=== PATIENT | female | born 1960 | race Caucasian/White ===

== ENCOUNTER → 2018-06-03 | Day surgery (SDC) | payer OTHER ==
--- NOTE | 2018-06-06 16:51 | PATH ---
Surgical Pathology Report Patient Name: GINO CLARK [facility]. Rec. #: [id number] /Age/Gender: 1960 (Age: 58) / F Account: [id number] Location: [facility] Taken: 06/03/2018 Received: 06/03/2018 Reported: 06/06/2018 Physicians: Jose Ayon M.D. Specimen(s) Received LEFT BREAST 9:00 RETRO CORE BIOPSY Clinical History Nonpalpable lesion Ultrasound findings: Highly suspicious/malignant Final Diagnosis Breast, left, 9:00 retro, core biopsy: Invasive mammary carcinoma with lobular features (see note). Carcinoma Measures at least 8 mm in greatest dimension in this material. Note: E-cadherin and p120 catenin immunostains are being performed to determine ductal versus lobular phenotype; results will be reported separately in an addendum. Results of ER) and KY studies performed at are as follows: ER (clone [id number] mouse monoclonal antibody by Leica): > 95 % nuclear staining with strong intensity (Positive). KY (clone16 mouse monoclonal antibody by Leica): 0 % nuclear staining (Negative). Results of Her-2 and Ki67 studies will be reported separately in an addendum. Positive and negative controls (internal if applicable) show appropriate results. Formalin fixation and cold ischemic times are within current ASCO/CAP recommendations for ER, KY and Her2 testing. Electronically Signed Donna Willson M.D. Addendum * Amended * Reported: 06/10/2018 Addendum Diagnosis Results of Her2 (IHC) & Ki-67 studies performed at [place], [place] ([id number]) are as follows: Her2 IHC (EP3 from [employer], formerly known as [id number], using Delcid Polymer Refine detection kit): 1+ (Negative). Ki-67: ~ 45% (high proliferative index). Immunostains performed at [facility] [place], [place] ([id number]) show the following results: The tumor cells show strong cytoplasmic positivity for p120 catenin; there is moderate cytoplasmic positivity for E-cadherin with lack of membranous staining. Based on this immunoprofile, in conjunction with morphology, this is an invasive lobular carcinoma (with pleomorphic features). Positive and negative controls (internal if applicable) show appropriate results. Caitlin King M.D. Amendments for Addendum (06/08/2018) Amended: 06/10/2018 by Donna Willson M.D. Reason: Add Procedure Results add results of E-cadherin and p120 catenin immunostains Previous Signout Date: 06/08/2018 Gross Description Received in formalin labeled "left breast biopsy retro 9:00," is a 1.0 x 0.7 x 0.1 cm aggregate of multiple hunt-yellow, irregular to cylindrical portions of fibroadipose tissue. The formalin is filtered and the specimen is entirely submitted in one cassette. Time to formalin fixation: < 1 minute Total formalin fixation time: Approximately 9 hours. /06/03/2018 saudi06/03/2018
--- NOTE | 2018-06-06 19:44 | OP ---
DATE OF OPERATION: 06/03/2018 PREOPERATIVE DIAGNOSIS: Left breast mass 9 o'clock, retroareolar. POSTOPERATIVE DIAGNOSIS: Left breast mass 9 o'clock, retroareolar. PROCEDURE: Left ultrasound-guided core biopsy with clip placement. ANESTHESIA: Local. ATTENDING SURGEON: Chapincito Armando MD ESTIMATED BLOOD LOSS: Minimal. COMPLICATIONS: None. DESCRIPTION OF PROCEDURE: Patient was made aware of the risks and benefits of the procedure and consented. She was placed in a supine position, and under sterile conditions with 1% lidocaine for local anesthesia, a small nicolas was made in the skin. Using a 13-gauge suction biopsy device via lateral approach under ultrasound guidance, multiple cores were obtained and submitted to Pathology. Likewise, under ultrasound guidance, a bowtie clip was placed into the biopsy region. Well tolerated by patient. Steri-Strip and sterile bandage were applied. We will contact her with the results. CHAPINCITO ARMANDO M.D. [id number]
== END | disposition home or self-care (01) ==
LOC: FRADUS-SUR 13:26
PROVIDERS: ATTEND Surgery
PROC: 0HBU3ZX Excision of Left Breast, Percutaneous Approach, Diagnostic (ICD-10-PCS; principal; 2018-06-03)
DX: C50.812 Malignant neoplasm of overlapping sites of left female breast (principal); Z17.0 Estrogen receptor positive status [ER+]; N63.20 Unspecified lump in the left breast, unspecified quadrant
CPT/HCPCS: 19083; 87899; 88305-TC; 88342-TC; A4648

== ENCOUNTER 2018-06-21 09:24 | Inpatient (IN) | payer OTHER ==
--- NOTE | 2018-06-15 15:55 | HP ---
Admitting History and Physical - Primary Care Physician PCP: Chapincito Armando - Admission Chief Complaint: left breast cancer History of Present Illness: 58 year old postmenapausal female presented with mass o0n self exam. Mammogram showed showed left breast 1.4 cm mass subareolar . US showed 1.4x1.4x1 cm left retroareolar mass . MRI localized left retroareolar mass no adenopathy probable right breast sebaceous cyst. . US core bx left breast retroareolar region showed invasive mammary carcinoma with lobular features ER+ HER2 -. History Source: Patient Limitations to Obtaining History: No Limitations - Past Medical History Additional Past Medical History: seasonal allergies - Past Surgical History Past Surgical History: Yes: Arthrosocopy (knee 2009) - Smoking History Smoking history: Never smoked Have you smoked in the past 12 months: No - Alcohol/Substance Use Hx Alcohol Use: Yes (social) Home Medications - Allergies Allergies/Adverse Reactions: Allergies Allergy/AdvReac Type Severity Reaction Status Date / Time No Known Allergies Allergy Verified 06/15/18 15:55 - Home Medications Home Medications (free text): vicodin prn Family Disease History - Family Disease History Other Family History: mat cousin x 2 breast ca 30's and 60 yr old Physical Examination Constitutional: Yes: No Distress Breast(s): Yes: Other (1.5 cm irregular firm mass subareolar left breast, right breast negative no adenopathy bilaterally) Problem List - Problems (1) Breast cancer, left breast Code(s): C50.912 - MALIGNANT NEOPLASM OF UNSPECIFIED SITE OF LEFT FEMALE BREAST Qualifiers: Breast location: combined nipple and areola Patient sex: female Assessment/Plan Central wide excision left breast, lymphoscintogram, sentenel node biopsy, possible axillary node dissection
[2018-06-20 14:53] VITALS: BMI 20.7
[2018-06-21] MEDS ORDERED: ISOSULFAN BLUE 10 MG/ML VIAL SQ ONE (12:26)
[2018-06-21] MEDS ORDERED: LIDOCAINE HCL/PF 2% SDV 5ML VIAL ONE (12:59)
[2018-06-21] MEDS ORDERED: fentaNYL CITRATE 250 MCG/5 ML VIAL ONE (12:59)
[2018-06-21] MEDS ORDERED: ROCURONIUM BROMIDE 50 MG/5 ML VIAL ONE (12:59)
[2018-06-21] MEDS ORDERED: PROPOFOL 20 ML ONE (13:00)
[2018-06-21] MEDS ORDERED: MIDAZOLAM HCL 2 MG/2 ML SINGLE DOSE VIAL ONE (13:00)
[2018-06-21] MEDS ORDERED: ONDANSETRON 4 MG/2 ML VIAL IVPUSH PRN ×3 (13:32→17:46)
[2018-06-21] MEDS ORDERED: KETOROLAC TROMETHAMINE 30 MG/1 ML VIAL IVPUSH PRN (13:32)
[2018-06-21] MEDS ORDERED: DEXTROSE 5%-0.45% SALINE 1,000 ML IV SCH (13:45)
[2018-06-21] MEDS ORDERED: oxyCODONE HCL 5 MG TABLET PO PRN ×2 (13:51→17:46)
[2018-06-21] MEDS ORDERED: ceFAZolin SODIUM 1 GM VIAL ONE ×2 (14:07→22:11)
[2018-06-21] MEDS ORDERED: ceFAZolin SODIUM 1 GM VIAL IVPB ONE (14:21)
[2018-06-21] MEDS ORDERED: DEXAMETHASONE SOD PHOSPHATE 4 MG/1 ML VIAL ONE (14:59)
[2018-06-21] MEDS ORDERED: BUPIVACAINE LIPOSOME/PF (EXPAREL) 266 MG/20 ML VIAL NR ONE (15:00)
[2018-06-21] MEDS ORDERED: BUPIVACAINE HCL/PF 0.25% (2.5MG/ML) 10 ML VIAL IJ ONE (16:50)
[2018-06-21] MEDS ORDERED: BUPIVACAINE LIPOSOME/PF (EXPAREL) 266 MG/20 ML VIAL IJ ONE (16:50)
[2018-06-21] MEDS ORDERED: KETOROLAC TROMETHAMINE 30 MG/1 ML VIAL ONE (17:05)
[2018-06-21] MEDS ORDERED: GLYCOPYRROLATE 0.2 MG/1 ML VIAL ONE (17:05)
[2018-06-21] MEDS ORDERED: NEOSTIGMINE METHYLSULFATE 0.5 MG/ML - 10 ML MDV ONE (17:05)
[2018-06-21] MEDS ORDERED: PROMETHAZINE HCL 25 MG/1 ML VIAL IVPUSH PRN (17:46)
[2018-06-21] MEDS ORDERED: LACTATED RINGERS SOLUTION 1,000 ML IV SCH (18:00)
[2018-06-21] MEDS ORDERED: ACETAMINOPHEN 1000 MG/100 ML VIAL (NON FORMULARY) IVPB ONE (18:40)
[2018-06-21] MEDS ORDERED: ACETAMINOPHEN INJECTION 100 ML IVPB ONE (18:42)
[2018-06-21] MEDS ORDERED: HYDROmorphone *PCA* 10MG/50ML DISP.SYRIN PCA SCH (18:45)
[2018-06-21] MEDS ORDERED: oxyCODONE HCL 5 MG TABLET ONE (19:18)
[2018-06-21] MEDS: oxyCODONE HCL 5 MG TABLET PO PRN (19:20)
--- NOTE | 2018-06-21 21:00 | OP ---
DATE OF OPERATION: 06/21/2018 PREOPERATIVE DIAGNOSIS: Left breast cancer. POSTOPERATIVE DIAGNOSIS: Left breast cancer. PROCEDURE: Left total mastectomy with sentinel node biopsy. ANESTHESIA: General intubated. ATTENDING SURGEON: Reina Rios MD COMMERCIAL COLLECTIONS SPECIALIST: RICKI Stein ESTIMATED BLOOD LOSS: 100 mL. COMPLICATIONS: None. DESCRIPTION OF PROCEDURE: The patient was made aware of the risks and benefits of the procedure and consented. She was placed in supine position after going to the nuclear medicine department where technetium was injected in the peritumoral tissues. After general anesthesia was induced, the patient was intubated. The operative site was prepped and draped in the usual sterile fashion. Then 2.5 mL of 1% Isosulfan Blue was locally infiltrated in the peritumoral tissues. Waiting approximately 10 minutes with gently manual compression, a curvilinear incision was made in the left axilla. Using blunt and sharp dissection, tissues were dissected down where a cluster of blue and hot lymph nodes were identified and surgically excised and submitted for frozen section. Palpation of the rest of the axilla revealed no suspicious lymph nodes, and the counts were less than 10% of the original. The wound was copiously irrigated with normal saline. Hemostasis maintained with electrocautery. The procedure then approached the left breast. A horizontally oriented elliptical incision was made around the nipple using electrocautery. Skin flaps were made superior to the clavicle, medial to the sternum, lateral to latissimus dorsi, and inferior to inframammary fold. The breast tissue was taken off the pectoralis muscle and extended laterally to the latissimus dorsi. This was submitted with a short suture superior and long suture lateral. Frozen section was reported as no evidence of metastasis. The wound was copiously irrigated with normal saline. Hemostasis maintained by electrocautery. The procedure was then turned over to Dr. Lawrence who did an personalized living manager implant reconstruction with AlloDerm. He will dictate his procedure separately. REINA URIARTE M.D. [id number]
--- NOTE | 2018-06-21 21:41 | OP ---
DATE OF OPERATION: 06/21/2018 PROCEDURES: 1. Left-sided breast reconstruction with tissue lens mold setter. 2. Application of acellular dermal matrix graft. 3. A 4-cm complex closure of axillary wound from sensation lymph node biopsy. ATTENDING SURGEON: Justin Lawrence MD SYSTEM SPECIALIST: None. ANESTHESIA: General endotracheal anesthesia. The procedure was performed in combination with a left-sided mastectomy and sentinel lymph node biopsy performed by Dr. Chapincito Armando. That portion of the procedure to be dictated by Dr. Armando and his team. DESCRIPTION OF PROCEDURE: The patient is prepped and draped by Dr. Armando and his team. She is positioned on the table by Dr. Armando and the team, and I am scrubbed in only upon completion of the mastectomy. At this point, the pocket is copiously irrigated with normal saline. The lateral border of the pectoralis major muscle was identified, and a plan is dissected deep to the pectoralis major muscle to its medial attachments to the sternum. It is also divided from its superior attachments to the costal margin. At this point, the wound is copiously irrigated with standard triple antibiotic solution. AlloDerm acellular dermal matrix is then brought onto the field. It is oriented properly. It is secured to the medial extent of the mastectomy wound as well as the inframammary folds, which is lowered 1/2 cm. It is likewise secured to the lateral mammary fold all with a running 2-0 PDS suture. Once this is completed, hemostasis is meticulously achieved within the pocket and is copiously irrigated with triple antibiotic solution once again, and a [employer] style 133 SX-T tissue lens mold setter is brought onto the field, rinsed in triple antibiotic solution, oriented properly. With new gloves, it is evacuated of all air, placed into the pocket, secured using the suture tabs with a 2-0 PDS suture, and the superior free edge of the AlloDerm is then sewn to the inferior free edge of the pectoralis major muscle closing the pocket. It is determined that the skin is sufficiently tight without any volume placed into the lens mold setter, so no volume is placed into the lens mold setter. The cavity is then inspected once again with copious irrigation being performed. The axilla is inspected with hemostasis and irrigation performed. The free edges of the mastectomy skin margin are then excised using face lift scissor. The deep fat of the mastectomy wound is closed with a running 3-0 Monocryl suture. The skin isthmus closed with a series of interrupted buried deep dermal 3-0 Monocryl suture followed by running subcuticular 4-0 Monocryl suture. The axilla is then closed in a layered fashion including the deep fascia with a 3-0 Monocryl suture. The skin is then closed with a series of interrupted buried deep dermal 3-0 Monocryl suture followed by a running subcuticular 4-0 Monocryl suture. Please note that the closure is performed over 2 separate size 10 flap J-P drains, which are brought out through the lateral extent of the inframammary fold. Separate stab wounds in the drains are secured with a 2-0 silk drain suture. One drain is at the inferior recess of the wound. The second drain is in the superior recess of the wound. It should be noted the patient received Ancef preoperatively. Sequential pressure stockings are on the patient through the entirety of the case. Jose [id number]
[2018-06-21] MEDS: CEFAZOLIN 1 GM in DEXTROSE 5%-WATER - 50 ML IVPB SCH ×2 (22:00→22:21)
[2018-06-21] MEDS ORDERED: ZOLPIDEM TARTRATE 5 MG TABLET PO PRN (22:00)
[2018-06-21] MEDS ORDERED: DEXTROSE 5%-WATER - 50 ML IVPB ONE (22:11)
[2018-06-21] MEDS: ACETAMINOPHEN 325 MG TABLET (FP) PO PRN (22:20)
[2018-06-21] MEDS: DEXTROSE 5%-0.45% SALINE 1,000 ML IV SCH (22:31)
[2018-06-22] MEDS: oxyCODONE HCL 5 MG TABLET PO PRN ×3 (00:42→15:01)
[2018-06-22] MEDS ORDERED: DEXTROSE 5%-WATER - 50 ML IVPB ONE ×2 (02:20→10:01)
[2018-06-22] MEDS ORDERED: ceFAZolin SODIUM 1 GM VIAL ONE ×2 (02:20→10:01)
[2018-06-22] MEDS: CEFAZOLIN 1 GM in DEXTROSE 5%-WATER - 50 ML IVPB SCH ×3 (02:35→15:08)
[2018-06-22] MEDS: ACETAMINOPHEN 325 MG TABLET (FP) PO PRN (03:15)
[2018-06-22 06:58] LABS: HEMATOCRIT 33.6 % (32.4-45.2); HEMOGLOBIN 11.3 GM/dL (10.7-15.3); MCH 30.1 pg (25.7-33.7); MCHC 33.8 g/dl (32.0-36.0); MEAN CELL VOLUME 89.2 fl (80-96); MEAN PLT VOLUME 9.7 fl (7.5-11.1); PLATELET COUNT 168 K/MM3 (134-434); RBC 3.77 M/mm3 (3.60-5.2); RDW 12.8 % (11.6-15.6); WHITE BLOOD COUNT 7.3 K/mm3 (4.0-10.0)
--- NOTE | 2018-06-22 07:55 | PN ---
Progress Note (short form) - Note Progress Note: POD 1 post left mastectomy with tissue oceanographer assistant reconstruction. VSS AF No collections, MARSHA's thin serosanguinous fluid, low output overnight All tissues viable Patient with adequate pain control, ambulating, Josefina PO Possible d/c home later today o tomorrow. Patient to leave dressing on and dry and measure MARSHA output with log until follow up in one week.
[2018-06-22] MEDS ORDERED: HEPARIN NA (PORCINE) 5,000 UNITS/ML 1ML VIAL SQ SCH (10:00)
[2018-06-22] MEDS ORDERED: FLU VACCINE QUAD 60 MCG/0.5 ML (MDV 18-19) IM ONE (10:00)
--- NOTE | 2018-06-22 10:05 | PN ---
Progress Note, Physician Chief Complaint: S/P left breast mastectomy with sentinel node bx and tissue field contractor POD#1 History of Present Illness: Patient was seen in the bedside and is complaining of surgical pain when laying down. The pain is relieved when she is sitting up. Otherwise she is tolerating po well. - Current Medication List Current Medications: Active Medications Acetaminophen (Tylenol -) 650 mg PO Q4H PRN PRN Reason: FEVER Last Admin: 06/22/18 03:15 Dose: 650 mg Heparin Sodium (Porcine) (Heparin -) 5,000 unit SQ BID ALYSE Cefazolin Sodium 1 gm/ (Dextrose) 50 mls @ 100 mls/hr IVPB Q6H-IV ALYSE Last Admin: 06/22/18 02:35 Dose: 100 mls/hr Dextrose/Sodium Chloride (D5-1/2ns -) 1,000 mls @ 100 mls/hr IV [facility] Last Admin: 06/21/18 22:31 Dose: Not Given Lactated Ringer's (Lactated Ringers Solution) 1,000 mls @ 75 mls/hr IV [facility] Last Admin: 06/21/18 22:21 Dose: 75 mls/hr Influenza Virus Vaccine Quadrival (Flulaval Quad [id number]) 60 mcg IM .ONCE ONE Stop: 06/22/18 10:01 Ondansetron HCl (Zofran Injection) 4 mg IVPUSH Q6H PRN PRN Reason: NAUSEA AND/OR VOMITING Ondansetron HCl (Zofran Injection) 4 mg IVPUSH Q6H PRN PRN Reason: NAUSEA AND/OR VOMITING Oxycodone HCl (Roxicodone -) 5 mg PO Q4H PRN PRN Reason: PAIN LEVEL 1-5 Last Admin: 06/22/18 06:42 Dose: 5 mg Oxycodone HCl (Roxicodone -) 10 mg PO Q4H PRN PRN Reason: PAIN LEVEL 6-10 Oxycodone HCl (Roxicodone -) 10 mg PO Q4H PRN PRN Reason: PAIN LEVEL 6-10 Stop: 06/22/18 17:45 Zolpidem Tartrate (Ambien -) 5 mg PO HS PRN PRN Reason: Insomnia - Objective Vital Signs: Vital Signs Temperature 98.4 F 06/22/18 06:00 Pulse Rate 57 L 06/22/18 06:00 Respiratory Rate 20 06/22/18 06:00 Blood Pressure 86/48 L 06/22/18 06:00 O2 Sat by Pulse Oximetry (%) 97 06/21/18 20:29 Constitutional: Yes: Well Nourished, Calm Breast(s): Yes: Other (Left chest dressing is C/D/I without discharge noted. JPs are intact with serosanginous discharge noted.) Labs: CBC, BMP 06/22/18 06:30 Problem List - Problems (1) Breast cancer, left breast Code(s): C50.912 - MALIGNANT NEOPLASM OF UNSPECIFIED SITE OF LEFT FEMALE BREAST Qualifiers: Breast location: combined nipple and areola Patient sex: female Assessment/Plan S/P left mastectomy with snbx and field contractor placement POD#1 Plan: Continue IV fluids and axbx OOB today with assistance IS 10xs hourly Possible discharge in the pm or in the am
[2018-06-22 14:48] VITALS: BP 104/64; PULSE 67; TEMP 98.7
[2018-06-22] MEDS: DEXTROSE 5%-0.45% SALINE 1,000 ML IV SCH (15:08)
--- NOTE | 2018-06-22 15:33 | PN ---
Progress Note, Physician Chief Complaint: S/p left mastectomy under general anesthesia History of Present Illness: post op day one - Current Medication List Current Medications: Active Medications Acetaminophen (Tylenol -) 650 mg PO Q4H PRN PRN Reason: FEVER Last Admin: 06/22/18 03:15 Dose: 650 mg Heparin Sodium (Porcine) (Heparin -) 5,000 unit SQ BID ALYSE Last Admin: 06/22/18 10:13 Dose: 5,000 unit Cefazolin Sodium 1 gm/ (Dextrose) 50 mls @ 100 mls/hr IVPB Q6H-IV ALYSE Last Admin: 06/22/18 15:08 Dose: Not Given Dextrose/Sodium Chloride (D5-1/2ns -) 1,000 mls @ 100 mls/hr IV [facility] Last Admin: 06/22/18 15:08 Dose: Not Given Lactated Ringer's (Lactated Ringers Solution) 1,000 mls @ 75 mls/hr IV [facility] Last Admin: 06/21/18 22:21 Dose: 75 mls/hr Ondansetron HCl (Zofran Injection) 4 mg IVPUSH Q6H PRN PRN Reason: NAUSEA AND/OR VOMITING Ondansetron HCl (Zofran Injection) 4 mg IVPUSH Q6H PRN PRN Reason: NAUSEA AND/OR VOMITING Oxycodone HCl (Roxicodone -) 5 mg PO Q4H PRN PRN Reason: PAIN LEVEL 1-5 Last Admin: 06/22/18 15:01 Dose: 5 mg Oxycodone HCl (Roxicodone -) 10 mg PO Q4H PRN PRN Reason: PAIN LEVEL 6-10 Oxycodone HCl (Roxicodone -) 10 mg PO Q4H PRN PRN Reason: PAIN LEVEL 6-10 Stop: 06/22/18 17:45 Zolpidem Tartrate (Ambien -) 5 mg PO HS PRN PRN Reason: Insomnia - Objective Vital Signs: Vital Signs Temperature 98.7 F 06/22/18 14:47 Pulse Rate 67 06/22/18 14:47 Respiratory Rate 18 06/22/18 14:47 Blood Pressure 104/64 06/22/18 14:47 O2 Sat by Pulse Oximetry (%) 97 06/21/18 20:29 Constitutional: Yes: Well Nourished Cardiovascular: Yes: WNL Respiratory: Yes: WNL Gastrointestinal: Yes: WNL Labs: CBC, BMP 06/22/18 06:30 Assessment/Plan No adverse effect of anesthetic, no nausea or vomiting, patient discharged home today, no questions about anesthetic. Dept of anesthesia will sign off care at this time
--- NOTE | 2018-06-27 10:07 | PATH ---
Surgical Pathology Report Patient Name: GINO CLARK Med. Rec. #: [id number] /Age/Gender: 1960 (Age: 58) / F Account: [id number] Location: [facility] MED/SURG Taken: 06/21/2018 Received: 06/21/2018 Reported: 06/27/2018 Physicians: Chapincito Armando M.D. Specimen(s) Received A: LEFT AXILLARY SENTINAL NODE B: LEFT BREAST, MASTECTOMY Clinical History Left breast cancer Intraoperative Consult Diagnosis Left axillary sentinel nodes (FS): Benign lymph nodes (0/6). Dr. Gilbert 06/21/18 Final Diagnosis A. AXILLARY SENTINEL LYMPH NODES, LEFT, EXCISION (FS): ONE OF SIX LYMPH NODES WITH ISOLATED TUMOR CLUSTERS BEST SEEN ON CYTOKERATIN AE1/3 (MALIGNANT CELL CLUSTERS, =0.2 MM AND =200 CELLS, 0/6). SIZE OF METASTATIC DEPOSIT, =200 CELLS. NO EXTRANODAL EXTENSION IDENTIFIED. SEE COMMENT. B. BREAST, LEFT, MASTECTOMY: INVASIVE LOBULAR CARCINOMA WITH PLEOMORPHIC FEATURES (TUBULE SCORE: 3/3, NUCLEAR GRADE: 3/3, MITOTIC SCORE: 2/3; TOTAL JOSE SCORE: 8/9). INVASIVE CARCINOMA MEASURES 1.4 CM IN GREATEST DIMENSION, MICROSCOPICALLY. FOCAL LOBULAR CARCINOMA IN SITU (LCIS). PERINEURAL AND FOCAL LYMPHOVASCULAR INVASION IDENTIFIED. SURGICAL MARGINS ARE UNINVOLVED BY CARCINOMA; CARCINOMA IS 4 MM FROM CLOSEST ANTERIOR MARGIN, REMAINDER OF MARGINS ARE WIDELY FREE. NIPPLE IS UNINVOLVED BY CARCINOMA. PRIOR BIOPSY SITE CHANGES ARE PRESENT. REMAINDER OF BREAST TISSUE SHOWS STROMAL FIBROSIS AND FOCAL ATYPICAL DUCTAL HYPERPLASIA. PATHOLOGIC STAGE (pTNM): pT1c pN0(i+). SEE INVASIVE CARCINOMA CASE SUMMARY BELOW. Comment: Part A, Tumor cell clusters are not identified on initial levels performed during frozen section. Immunohistochemical stain performed and interpreted at [facility] for cytokeratin AE1/3 highlight isolated tumor cell clusters on deeper levels of one (1) sentinel lymph node. Part B, the tumor is positive for AE1/3. E-cadherin immunohistochemical stain was utilized to evaluate this case. Comments Breast Invasive Carcinoma: Surgical Pathology Case Summary (Based on AJCC TNM 8 th edition) Procedure _X_ Total mastectomy Specimen Laterality _X__ Left Tumor Size _X_ Greatest dimension of largest invasive focus >1 mm (specify exact measurement) (millimeters): _14_ mm Histologic Type _X_ Invasive carcinoma with pleomorphic features Histologic Grade (R[place] Histologic Score) Glandular (Acinar)/Tubular Differentiation _X_ Score 3 (<10% of tumor area forming glandular/tubular structures) Nuclear Pleomorphism _X_ Score 3 Mitotic Rate _X_ Score 2 Overall Grade _X__ Grade 3 (scores of 8) Tumor Focality _X__ Single focus of invasive carcinoma Ductal Carcinoma In Situ (DCIS) No DCIS in specimen _X__ No DCIS in specimen Margins Invasive Carcinoma Margins _X__ Uninvolved by invasive carcinoma Distance from closest margin (millimeters): 4 mm Closest margin: Anterior Regional Lymph Nodes Number of Lymph Nodes with Macrometastases (>2 mm): 0 Number of Lymph Nodes with Micrometastases (>0.2 mm to 2 mm and/or >200 cells): 0 Number of Lymph Nodes with Isolated Tumor Cells (=0.2 mm and =200 cells): 1 Size of Largest Metastatic Deposit (millimeters): =200 cells Extranodal Extension: _X__ Not identified Number of Lymph Nodes Examined: 6 Number of [place] Nodes Examined : 6 Treatment Effect _X_ No known presurgical therapy Lymphovascular Invasion _X__ Present Pathologic Stage Classification (pTNM, AJCC 8th Edition) Primary Tumor (Invasive Carcinoma) (pT) _X_ pT1c: Tumor >10 mm but =20 mm in greatest dimension Regional Lymph Nodes (pN) Category (pN) _X_ pN0 (i+): ITCs only (malignant cell clusters no larger than 0.2 mm) in regional lymph node(s) Biomarker Studies Results of ER and WY studies performed on prior biopsy ([id number]) are as follows: ER (clone [id number] mouse monoclonal antibody by [employer]): >95% nuclear staining with strong intensity (Positive). [place] (clone16 mouse monoclonal antibody by [employer]): 0% nuclear staining (Negative). Results of Her2 (IHC) & Ki-67 studies performed on prior biopsy ([id number]) are as follows: Her2 IHC (EP3 from [employer], formerly known as [id number], using Delcid Polymer Refine detection kit): 1+ (Negative). Ki67: ~45% (High proliferative index). MLSZ/06/27/2018 Electronically Signed Caitlin King M.D. Gross Description A. Received fresh labeled "left axillary sentinel node" are 6 pink-hunt nodular soft tissue ranging in size from 0.4 cm to 1 cm in greatest dimension. Entire specimen is submitted for frozen analysis in 4 cassettes. FS1- frozen section residue, one lymph node, bisected ; FS2- frozen section residue, two lymph nodes FS3- frozen section residue, two lymph nodes. FS4- frozen section residue, one lymph node. KWS/06/22/2018 B. Received fresh labeled "left breast mastectomy" is a 181 g mastectomy specimen which measures 15 x 13 x 2.0 cm. Specimen is designated as follows: Long suture-lateral, short suture-superior, per surgeon. Nipple complex is identified which measures 2.5 cm in diameter. The specimen is inked as follows: Anterior-red, posterior-black, medial-yellow, lateral-orange, superior-blue, and inferior-green. The specimen is a section from medial to lateral. Cut section shows a white-hunt, firm, stellate retroareolar mass, adjacent area of hemorrhage consistent with prior biopsy. The mass measures 1.4 x 1.4 x 1 cm, 0.4 cm from anterior margin and 0.6 from posterior margin. All other margins are grossly >6 mm away. Remainder of the specimen is fibrofatty. Telecasting Technician sections are submitted as follows: B1-4: Entirely submitted mass with nipple, anterior, and posterior margins, B5-6: Adjacent biopsy site; B7- UOQ, B8- LOQ, B9- IUQ; B10- LIQ. Total formalin fixation: 26-28 hours. STEVEN/06/22/2018 amarjit06/22/2018
== END 2018-06-22 15:38 | disposition home or self-care (01) | DRG 578 ==
LOC: JASU-SURG 09:24 → JSAMEDAYSX 13:52 → J8W 20:30
PROVIDERS: ADMIT Surgery Surgical Oncology; ATTEND Surgery Surgical Oncology
PROC: 0HQUXZZ (ICD-10-PCS; 2018-06-21)
PROC: 0HTU0ZZ Resection of Left Breast, Open Approach (ICD-10-PCS; principal; 2018-06-21 14:41)
PROC: 07B60ZX Excision of Left Axillary Lymphatic, Open Approach, Diagnostic (ICD-10-PCS; 2018-06-21 14:41)
PROC: 0HRUXKZ (ICD-10-PCS; 2018-06-21 14:41)
PROC: 0HHU0NZ Insertion of Tissue Expander into Left Breast, Open Approach (ICD-10-PCS; 2018-06-21 14:41)
DX: C50.912 Malignant neoplasm of unspecified site of left female breast (principal)
CPT/HCPCS: 36415; 78195-TC; 85027; 88307-TC; 88331-TC; 88341-TC; 90688; 94760; A9541; G0008; J0131; J1644